=== PATIENT | female | born 2000 | race Caucasian/White ===

== ENCOUNTER → 2022-03-19 | Outpatient (CLI) | payer OTHER ==
[~2022-03-19] MED LIST: COMPLETENATE T1 EACH PO
== END | disposition home or self-care (01) ==
LOC: EDBD 11:24 → OBS/DEL 11:24
PROVIDERS: ATTEND Obstetrics & Gynecology
DX: O26.893 Other specified pregnancy related conditions, third trimester (principal); Z3A.36 36 weeks gestation of pregnancy; O26.843 Uterine size-date discrepancy, third trimester; O36.8199 Decreased fetal movements, unspecified trimester, other fetus